=== PATIENT | female | born 1995 | race Caucasian/White ===

== ENCOUNTER 2017-10-29 18:22 | Emergency (ER) | payer SELFPAY, OTHER | END 2017-10-29 21:00 | disposition left against medical advice (07) | LOC: FTE 21:00 | DX: Z53.21 Procedure and treatment not carried out due to patient leaving prior to being seen by health care provider (principal) ==

== ENCOUNTER 2018-02-05 19:42 | Emergency (ER) | payer SELFPAY | END 2018-02-05 23:12 | disposition left against medical advice (07) | LOC: FTE 19:42 | DX: Z53.21 Procedure and treatment not carried out due to patient leaving prior to being seen by health care provider (principal) ==

== ENCOUNTER 2018-06-29 19:38 | Emergency (ER) | payer OTHER ==
[2018-06-29] MEDS: LORAZEPAM 1 MG TAB PO (23:05)
== END 2018-06-29 23:29 | disposition home or self-care (01) ==
LOC: FTE 19:38
DX: F41.1 Generalized anxiety disorder (principal)
CPT/HCPCS: 99283; Z7502

== ENCOUNTER 2019-01-26 19:58 | Emergency (ER) | payer OTHER ==
[2019-01-27] MEDS: KETOROLAC 60 MG INJ IM (01:41)
[2019-01-27] MEDS: predniSONE 20 MG TAB PO (01:41)
[2019-01-27 02:59] LABS: MONOTEST Negative (NEG)
== END 2019-01-27 03:47 | disposition home or self-care (01) ==
LOC: FTE 19:58
DX: J02.9 Acute pharyngitis, unspecified (principal)
CPT/HCPCS: 81025; 86308; 87880; 96372; 99284-25